=== PATIENT | male | born 1990 | race Caucasian/White ===

== ENCOUNTER → 2017-11-07 | Outpatient (CLI) | payer MEDICAID ==
[~2017-11-07] MED LIST: ADDE5TAB PO
--- NOTE | 2017-11-08 09:42 | EKG ---
Date Performed: 11/07/2017 Time Performed: 13:02:03 PTAGE: 26 years EKG: Sinus rhythm NORMAL ECG Since the prior tracing, there has been no significant change PREVIOUS TRACING : 01/19/2016 11.33 DOCTOR: Colt Rich Interpretating Date/Time 11/08/2017 09:41:04
== END ==
LOC: HCAV 12:32
DX: F31.60 Bipolar disorder, current episode mixed, unspecified (principal); F90.2 Attention-deficit hyperactivity disorder, combined type
CPT/HCPCS: 93005